=== PATIENT | female | born 1980 | race Hispanic/Latino ===

== ENCOUNTER 2018-06-25 09:58 | Emergency (ER) | payer BC ==
[~2018-06-25] VITALS: Ht 165.1 cm; Wt 74.8 kg
--- NOTE | 2018-06-25 10:36 | NUR ---
[facility]
--- NOTE | 2018-06-25 10:37 | NUR ---
AWARE NEED FOR URINE SPECIMEN FOR UPT FOR CT
--- NOTE | 2018-06-25 12:23 | Diagnostic Imaging Report ---
EXAM: CT Abdomen and Pelvis WITHOUT contrast INDICATION: Back pain ^[id number] ^[id number] COMPARISON: None. TECHNIQUE: Abdomen and pelvis were scanned utilizing a multidetector helical scanner from the lung base to the pubic symphysis without administration of IV contrast. Absence of intravenous contrast decreases sensitivity for detection of focal lesions and vascular pathology. Coronal and sagittal reformations were obtained. Routine protocol was performed. IV CONTRAST: None. ORAL CONTRAST: Water RADIATION DOSE: Total DLP: 690 mGy*cm Estimated effective dose: (DLP x 0.015 x size factor) mSv COMPLICATIONS: None FINDINGS: LINES and TUBES: None. LOWER THORAX: Unremarkable HEPATOBILIARY: No focal hepatic lesions. No biliary ductal dilation. GALLBLADDER: Cholecystectomy. SPLEEN: No splenomegaly. PANCREAS: No focal masses or ductal dilatation. ADRENALS: No adrenal nodules KIDNEYS/URETERS: No hydronephrosis. No cystic or solid mass lesions. No stones. GI TRACT: No abnormal distention, wall thickening, or evidence of bowel obstruction. Mild scattered diverticulosis of the sigmoid colon without diverticulitis. Appendix is normal. PELVIC ORGANS/BLADDER: Unremarkable. LYMPH NODES: No lymphadenopathy. VESSELS: Unremarkable. PERITONEUM / RETROPERITONEUM: No free air or fluid. BONES: Unremarkable. SOFT TISSUES: Unremarkable. IMPRESSION: 1. Mild diverticulosis of the sigmoid colon without diverticulitis. 2. Otherwise, unremarkable CT of the abdomen and pelvis. Signed by: Dr. Cathryn Alonzo M.D. on 06/25/2018 12:20 PM
[2018-06-25] MEDS ORDERED: KETOROLAC TROMETHAMINE 30 MG/ML VIAL ONE (12:40)
== END 2018-06-25 12:36 | disposition home or self-care (01) ==
LOC: FSED 09:58
DX: R10.11 Right upper quadrant pain (principal); R10.13 Epigastric pain; R11.2 Nausea with vomiting, unspecified; R31.29 Other microscopic hematuria; K52.9 Noninfective gastroenteritis and colitis, unspecified; E87.6 Hypokalemia
CPT/HCPCS: 36415; 74176; 80048; 80076; 81003; 81025; 83690; 85025; 99284; J1885